=== PATIENT | male | born 1985 | race Two or more races ===

== ENCOUNTER 2019-03-06 20:57 | Emergency (ER) | payer OTHER ==
[~2019-03-06] VITALS: Ht 167.6 cm; Wt 104.3 kg
[2019-03-06] MEDS ORDERED: ONDANSETRON PF 4 MG/2 ML VIAL. IVP ONE (21:30)
[2019-03-06] MEDS ORDERED: KETOROLAC 15 MG/ML VIAL. IVP ONE (21:30)
[2019-03-06] MEDS ORDERED: MORPHINE SULFATE 4 MG/ML VIAL. IV ONE (21:30)
[2019-03-06 21:40] LABS: BILIRUBIN,URINE NEGATIVE (NEG); CLARITY,URINE CLEAR; COLOR,URINE YELLOW; NITRITE,URINE NEGATIVE (NEG); PH,URINE 5.5; PROTEIN,URINE NEGATIVE (NEG-TRACE); UROBILINOGEN,URINE 0.2 mg/dL (0.2 mg/dL)
[2019-03-06 21:45] LABS: BACTERIA,URINE 0 /HPF (0-FEW); RBC,URINE 0 /HPF (0-2); SQUAMOUS EPITHELIAL CELL,UR OCC /LPF; WBC,URINE 0 /HPF (0-4)
[2019-03-06 21:46] LABS: BASO % 0 % (0-3); EOS # 0.2 x10^3/uL (0.0-0.7); EOS % 2 % (0-3); HEMATOCRIT 42.6 % (39.0-53.0); HEMOGLOBIN 14.8 g/dL (13.0-17.5); LYMPH # 1.6 x10^3/uL (1.0-4.8); LYMPH % 16 % (24-48); MEAN CORPUSCULAR HEMOGLOBIN 30 pg (25-35); MEAN CORPUSCULAR HGB CONC 35 g/dL (31-37); MEAN CORPUSCULAR VOLUME 85 fL (79-100); MONO # 1.1 x10^3/uL (0.0-1.1); MONO % 11 % (0-9); NEUT # 7.2 x10^3/uL (1.8-7.7); NEUT % 72 % (31-73); PLATELET COUNT 257 x10^3/uL (140-400); RED BLOOD COUNT 4.99 x10^6/uL (4.30-5.70); RED CELL DISTRIBUTION WIDTH 13.1 % (11.5-14.5); WHITE BLOOD COUNT 10.1 x10^3/uL (4.0-11.0)
[2019-03-06 21:50] LABS: CALCIUM 8.6 mg/dL (8.5-10.1); CREATININE 0.9 mg/dL (0.7-1.3); POTASSIUM 3.7 mmol/L (3.5-5.1)
[2019-03-06 21:55] LABS: ALBUMIN/GLOBULIN RATIO 1.2 (1.0-1.7); TOTAL BILIRUBIN 0.2 mg/dL (0.2-1.0); TOTAL PROTEIN 7.4 g/dL (6.4-8.2)
[2019-03-06] MEDS ORDERED: IOHEXOL 300 MG/ML 100ML VIAL. IV ONE (22:00)
[2019-03-06] MEDS ORDERED: CONTRAST GIVEN. MC PRN (22:00)
[2019-03-06 22:01] VITALS: BP 145/83
--- NOTE | 2019-03-06 22:31 | RAD ---
Study: CT abdomen/pelvis with intravenous contrast Indication: Right lower quadrant pain Comparison: None. Technique: Helical CT imaging performed of the abdomen and pelvis after the intravenous administration of 75 cc Omnipaque 300 contrast. Sagittal and coronal reformats were obtained. One or more of the following individualized dose reduction techniques were utilized for this examination: 1. Automated exposure control 2. Adjustment of the mA and/or kV according to patient size 3. Use of iterative reconstruction technique. Findings: Unremarkable lower lungs and visualized heart. Unremarkable liver, gallbladder, pancreas, spleen and adrenal glands. Small bilateral renal cysts. Unremarkable urinary bladder and prostate. Short segment sigmoid diverticulitis without perforation or abscess formation. This is seen on image 72 series 2 as edematous thickening of the sigmoid colonic wall with surrounding inflammation adjacent to an inflamed diverticuli. The rest of the colon is unremarkable. The appendix is normal. Nonobstructed small bowel. The stomach is within normal limits. Localized fat anterior to the proximal left femur, image 101 series 2, could represent fatty atrophy from a remote injury versus a simple intramuscular lipoma. Mild discogenic arthrosis at L5-S1. Impression: Mild, uncomplicated diverticulitis involving a short segment of the sigmoid colon. No perforation or abscess. Electronically signed by: SACHA HERNANDEZ MD (03/06/2019 10:28 PM) [facility]
[2019-03-06] MEDS ORDERED: METR500T PO (22:51)
[2019-03-06] MEDS ORDERED: CIPR500T94 PO (22:51)
[2019-03-06] MEDS ORDERED: HYDR-2761 PO (22:54)
[2019-03-06] MEDS ORDERED: metroNIDAZOLE 500 MG TABLET PO ONE (23:00)
[2019-03-06] MEDS ORDERED: HYDROcodone/APAP 5/325MG 1 TAB TABLET PO ONE (23:00)
--- NOTE | 2019-03-07 06:04 | PHYS DOC ---
Past Medical History Past Medical History: No Pertinent History Past Surgical History: Other Additional Past Surgical Histo: L HAND CYST REMOVED Alcohol Use: Occasionally Drug Use: None Adult General Chief Complaint Chief Complaint: ABDOMINAL PAIN HPI HPI Patient is a 33 year old male who presents with suprapubic pain, urgency starting several hours prior to ED arrival. She reports pain with urge to urinate. Denies penile discharge, testicular pain tenderness or swelling. No back pain. Pain is worse with palpation and movement. No fevers chills, nausea vomiting or sweats. Denies constipation and diarrhea. Normal bowel movement earlier today. No prior abdominal surgeries. [] Review of Systems Review of Systems Review symptoms as prescribed. All other review symptoms are negative. All other systems were reviewed and found to be within normal limits, except as documented in this note. Current Medications Current Medications Current Medications Medications (Trade) Dose Ordered Sig/Pao Start Time Stop Time Status Last Admin Dose Admin Acetaminophen/ Hydrocodone Bitart (Lortab 5/325) 1 tab 1X ONCE 03/06/19 23:00 03/06/19 23:01 DC 03/06/19 23:07 1 TAB Info (CONTRAST GIVEN -- Rx MONITORING) 1 each PRN DAILY PRN 03/06/19 22:00 03/06/19 23:12 DC Iohexol (Omnipaque 300 Mg/ml) 75 ml 1X ONCE 03/06/19 22:00 03/06/19 22:01 DC 03/06/19 22:20 75 ML Ketorolac Tromethamine (Toradol 15mg Vial) 15 mg 1X ONCE 03/06/19 21:30 03/06/19 21:31 DC 03/06/19 21:59 15 MG Levofloxacin (Levaquin) 500 mg 1X ONCE 03/06/19 23:00 03/06/19 23:01 DC 03/06/19 23:07 500 MG Metronidazole (Flagyl) 500 mg 1X ONCE 03/06/19 23:00 03/06/19 23:01 DC 03/06/19 23:07 500 MG Morphine Sulfate (Morphine Sulfate) 4 mg 1X ONCE 03/06/19 21:30 03/06/19 21:31 DC 03/06/19 22:00 4 MG Ondansetron HCl (Zofran) 4 mg 1X ONCE 03/06/19 21:30 03/06/19 21:31 DC 03/06/19 21:58 4 MG Allergies Allergies Allergies Coded Allergies Type Severity Reaction Last Updated Verified No Known Drug Allergies 03/06/19 No Physical Exam Physical Exam Constitutional: Well developed, well nourished, no acute distress, non-toxic appearance. [] HENT: Normocephalic, atraumatic, bilateral external ears normal, oropharynx moist, no oral exudates, nose normal. [] Eyes: PERRLA, EOMI, conjunctiva normal, no discharge. [] Neck: Normal range of motion, no tenderness, supple, no stridor. [] Cardiovascular:Heart rate regular rhythm, no murmur [] Lungs & Thorax: Bilateral breath sounds clear to auscultation [] Abdomen: Bowel sounds normal, soft, he. Pain, tenderness. No rebound rigidity or guarding.. [] Skin: Warm, dry, no erythema, no rash. [] Back: No tenderness, no CVA tenderness. [] Extremities: No tenderness, no cyanosis, no clubbing, ROM intact, no edema. [] Neurologic: Alert and oriented X 3, normal motor function, normal sensory function, no focal deficits noted. [] Psychologic: Affect normal, judgement normal, mood normal. [] Current Patient Data Vital Signs Vital Signs Date Time Temp Pulse Resp B/P (MAP) Pulse Ox O2 Delivery O2 Flow Rate FiO2 03/06/19 23:07 20 Room Air 03/06/19 22:01 98 145/83 (103) 98 03/06/19 21:06 98.7 98.7 Lab Values Laboratory Tests Test 03/06/19 21:17 03/06/19 21:30 White Blood Count 10.1 x10^3/uL (4.0-11.0) Red Blood Count 4.99 x10^6/uL (4.30-5.70) Hemoglobin 14.8 g/dL (13.0-17.5) Hematocrit 42.6 % (39.0-53.0) Mean Corpuscular Volume 85 fL (79-100) Mean Corpuscular Hemoglobin 30 pg (25-35) Mean Corpuscular Hemoglobin Concent 35 g/dL (31-37) Red Cell Distribution Width 13.1 % (11.5-14.5) Platelet Count 257 x10^3/uL (140-400) Neutrophils (%) (Auto) 72 % (31-73) Lymphocytes (%) (Auto) 16 % (24-48) L Monocytes (%) (Auto) 11 % (0-9) H Eosinophils (%) (Auto) 2 % (0-3) Basophils (%) (Auto) 0 % (0-3) Neutrophils # (Auto) 7.2 x10^3/uL (1.8-7.7) Lymphocytes # (Auto) 1.6 x10^3/uL (1.0-4.8) Monocytes # (Auto) 1.1 x10^3/uL (0.0-1.1) Eosinophils # (Auto) 0.2 x10^3/uL (0.0-0.7) Basophils # (Auto) 0.0 x10^3/uL (0.0-0.2) Sodium Level 140 mmol/L (136-145) Potassium Level 3.7 mmol/L (3.5-5.1) Chloride Level 102 mmol/L (98-107) Carbon Dioxide Level 24 mmol/L (21-32) Anion Gap 14 (6-14) Blood Urea Nitrogen 21 mg/dL (8-26) Creatinine 0.9 mg/dL (0.7-1.3) Estimated GFR (Cockcroft-Gault) 96.0 BUN/Creatinine Ratio 23 (6-20) H Glucose Level 125 mg/dL (70-99) H Calcium Level 8.6 mg/dL (8.5-10.1) Total Bilirubin 0.2 mg/dL (0.2-1.0) Aspartate Amino Transferase (AST) 21 U/L (15-37) Alanine Aminotransferase (ALT) 32 U/L (16-63) Alkaline Phosphatase 94 U/L (46-116) Total Protein 7.4 g/dL (6.4-8.2) Albumin 4.0 g/dL (3.4-5.0) Albumin/Globulin Ratio 1.2 (1.0-1.7) Urine Collection Type Unknown Urine Color Yellow Urine Clarity Clear Urine pH 5.5 Urine Specific [place] 1.025 Urine Protein Negative mg/dL (NEG-TRACE) Urine Glucose (UA) Negative mg/dL (NEG) Urine Ketones (Stick) Negative mg/dL (NEG) Urine Blood Negative (NEG) Urine Nitrite Negative (NEG) Urine Bilirubin Negative (NEG) Urine Urobilinogen Dipstick 0.2 mg/dL (0.2 mg/dL) Urine Leukocyte Esterase Negative (NEG) Urine RBC 0 /HPF (0-2) Urine WBC 0 /HPF (0-4) Urine Squamous Epithelial Cells Occ /LPF Urine Bacteria 0 /HPF (0-FEW) Urine Mucus Slight /LPF Laboratory Tests 03/06/19 21:17 Laboratory Tests 03/06/19 21:17 EKG EKG [] Radiology/Procedures Radiology/Procedures [CT abdomen pelvis: Acute diverticulitis per radiology report] Course & Med Decision Making Course & Med Decision Making Pertinent Labs and Imaging studies reviewed. (See chart for details) [Findings of diverticulitis. Pain improved with treatment. Antibiotics prescribed. Recommendations are management with close PCP follow-up. Return precautions reviewed. Patient verbalizes understanding and agreement with discharge instructions prior to departure.] Dragon Disclaimer Dragon Disclaimer This electronic medical record was generated, in whole or in part, using a voice recognition dictation system. Departure Departure Impression: Primary Impression: Acute diverticulitis Disposition: HOME/RESIDENCE PRIOR TO ADM Condition: GOOD Patient Instructions: Diverticulitis, [id number] Additional Instructions: Abdomen imaging studies were performed. CT imaging shows diverticuliliti, an infection of the large bowel. Drink clear liquids only for the next 72 hours. Take hydrocodone for pain and antibiotics as directed. Follow-up with your PCP in 3-5 days for reevaluation. Return to the ED if new or worsening symptoms Scripts Hydrocodone Bit/Acetaminophen (HYDROCODONE-APAP 5-325 ) 1 Tab Tablet 1 TAB PO PRN Q6HRS PRN for PAIN for 7 Days, #14 TAB 0 Refills Prov: MARY LOU LAM DO 03/06/19 Metronidazole (FLAGYL) 500 Mg Tablet 500 MG PO TID, #21 TAB Prov: MARY LOU LAM DO 03/06/19 Ciprofloxacin Hcl (CIPRO) 500 Mg Tablet 1 TAB PO BID for 10 Days, #20 TAB 0 Refills Prov: MARY LOU LAM DO 03/06/19 MARY LOU LAM DO Mar 07, 2019 06:04
== END 2019-03-06 23:12 | disposition home or self-care (01) ==
LOC: ER 20:57
DX: K57.92 Diverticulitis of intestine, part unspecified, without perforation or abscess without bleeding (principal)
CPT/HCPCS: 36415; 74177; 80053; 81001; 85025; 96374; 96375; 99285; J1885; J2270; J2405; Q9967